=== PATIENT | female | born 2000 | race Caucasian/White ===

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

== ENCOUNTER 2020-05-29 08:11 | Emergency (ER) | payer OTHER ==
[~2020-05-29] VITALS: Ht 167.6 cm; Wt 92.1 kg
[2020-05-29 08:27] VITALS: Ht 167.6 cm; Wt 92.1 kg
[2020-05-29 10:28] VITALS: BP 132/86
== END 2020-05-29 10:28 | disposition home or self-care (01) ==
LOC: ED 08:11
DX: S13.4XXA Sprain of ligaments of cervical spine, initial encounter (principal); S39.012A Strain of muscle, fascia and tendon of lower back, initial encounter; V49.9XXA Car occupant (driver) (passenger) injured in unspecified traffic accident, initial encounter; Y93.89 Activity, other specified; Y92.89 Other specified places as the place of occurrence of the external cause; Y99.8 Other external cause status

== ENCOUNTER 2020-10-31 11:15 | Emergency (ER) | payer OTHER ==
[~2020-10-31] VITALS: Ht 165.1 cm; Wt 89.8 kg
[2020-10-31 11:21] VITALS: Ht 165.1 cm; Wt 89.8 kg
[2020-10-31 16:21] VITALS: BP 124/75
== END 2020-10-31 16:21 | disposition home or self-care (01) ==
LOC: ED 11:15
DX: M43.6 Torticollis (principal)

== ENCOUNTER 2020-12-31 18:33 | Emergency (ER) | payer OTHER ==
[~2020-12-31] VITALS: Ht 167.6 cm; Wt 95.7 kg
[2020-12-31 18:48] VITALS: Ht 167.6 cm; Wt 95.7 kg
[2020-12-31] MEDS ORDERED: VALIUM5 MG PO (20:09)
[2020-12-31] MEDS ORDERED: MOT800 PO (20:09)
[2020-12-31] MEDS ORDERED: VOLTAREN100 GM TOP (20:09)
[2020-12-31 22:12] VITALS: BP 105/55
== END 2020-12-31 22:30 | disposition home or self-care (01) ==
LOC: ED 18:33
DX: S80.02XA Contusion of left knee, initial encounter (principal); S40.012A Contusion of left shoulder, initial encounter; V49.49XA Driver injured in collision with other motor vehicles in traffic accident, initial encounter; Y93.I9 Activity, other involving external motion; Y92.89 Other specified places as the place of occurrence of the external cause; Y99.8 Other external cause status
CPT/HCPCS: J1885